=== PATIENT | male | born 1995 | race Caucasian/White ===

== ENCOUNTER 2020-01-06 03:43 | Inpatient (IN) ==
--- OUTSIDE RECORDS SUMMARY | 2020-01-06 03:46 | External Medical Summary | Continuity of Care Document ---
:1995 Author Name Arben Waddell, Provider Address Unavailable Unavailable , Care Team Providers Name Role Phone Anayeli GRIFFIN M.D., Dharmesh Liz Unavailable [email or web address] ELIAS ACOSTA M.D., A Unavailable Unavailable Unavailable Unavailable Unavailable Problems Pain (780.96) (R52) Cellulitis (682.9) (L03.90) Allergies and Adverse Reactions amoxicillin (Allergy) Medications Saw [place] Oral Capsule Refills: 0 Vitamin B Complex Oral Tablet; TAKE 1 TABLET DAILY. Refills: 0 Fish Oil 1000 MG Oral Capsule Refills: 0 Niacin TABS; TAKE 1 TABLET DAILY DIRECTED. Refills: 0 Vitamin C 100 MG Oral Tablet; TAKE 1 TABLET DAILY DIRECTE D. Refills: 0 Procedures Procedures not documented Immunizations Immunizations not documented Family History Unknown Family Member Family history unknown (V49.89) (Z78.9) Status: Active Comments: Family History Plan of Treatment Planned Observations Planned Goals not documented Results No Known Results Results not documented Encounters Appointment; Anna De Anda PA-C 08-May-2018 16:00 Encounter Diagnosis: Problem not documented Appointment; Nursing [facility], [place] [id number] 08-May-2018 15:45 Encounter Diagnosis: Problem not documented
[2020-01-06] MEDS ORDERED: SODIUM CHLORIDE 0.9% 1000ML 1,000 ML IV ONE ×2 (03:59→05:05)
--- NOTE | 2020-01-06 04:09 | Emergency Department Note ---
History of Present Illness General Chief Complaint: Syncope Stated Complaint: UNRESPONSIVE EPISODE Source: patient Mode of arrival: ambulatory Limitations: no limitations History of Present Illness Provider Complaint: + loss of consciousness Onset (ago): 1 hour(s) Prodromal symptoms: + none Witnessed: + no Context: + illicit drug use and + other (in sauna after exercising) Injuries sustained associated with event: + none Current symptoms: + back to baseline Treatments prior to arrival: + none HPI narrative: This 24-year-old male patient presents the emergency department today via ambulance for syncopal episode. The patient states at approximately 11 PM, he went to the gym with a friend. He states he then vomited, left to go get food, and went back to the gym to workout. He states he had maybe a 2-hour workout, and to the sauna, but his phone was so he was unable to set an alarm to remind him to leave the sauna. He states the next thing he knew, he awoke in the sauna, drenched in sweat, and walked out when he saw multiple police officers in the gym. EMS was contacted and the patient was brought to the ED for evaluation. He states he does not remember passing out, but knows that he just fell over. He reports feeling very thirsty, but otherwise denies any abnormal symptoms. He does admit to using recreational steroids and a weight loss supplement. He states 4 days ago, he had another syncopal episode while at home with his girlfriend. He states he got up to go to the bathroom, and passed out and was unable to return to bed. He states he was extremely thirsty at that time as well. Patient states his girlfriend who is a type I diabetic checked his blood sugar and noted it to be "almost nothing", prompting him to believe that he is now prediabetic due to the steroids. Patient denies any chest pain, dyspnea, abdominal pain, nausea, vomiting, numbness, tingling, weakness, headache, dizziness, or other associated symptoms. EMS report noted patient was found with a substance which PD field tested positive for methamphetamine. Home Medicaitons Home Medications Medication Instructions Recorded Confirmed Type No Known Home Medications 01/06/20 01/06/20 History Allergies Allergy/AdvReac Type Severity Reaction Status Date / Time amoxicillin Allergy Unknown . Verified 01/06/20 03:50 Past Med/Surg History Medical History No pertinent past medical history Social History Feels Safe at Home: Yes Smoking Status: Current some day smoker Tobacco Type: cigarettes ; Hx Alcohol Use: Yes Hx Substance Use: Yes substance use type: marijuana, methamphetamine and other Substance Use Type Other:: "chante", "thermogenics for weight loss", "testosterone and steroids" Last Used Substance: Hours (ago) Review of Systems A total of 10 systems reviewed and were otherwise negative Physical Exam Vital Signs: Vital Signs - 24 hr 01/06/20 03:48 01/06/20 05:20 01/06/20 06:00 Temperature 37.8 C H Temperature Source Oral Pulse Rate 116 H Pulse Rate [Right Finger] 128 H 128 H Pulse Rhythm Regular Pulse Rhythm [Righ t Finger] Regular Respiratory Rate 20 16 18 Respiratory Depth Normal Normal Normal Blood Pressure 149/100 H Blood Pressure [Ri ght Arm] 134/50 L 133/52 L Blood Pressure Riana n 116 Blood Pressure Riana n [Right Arm] 78 79 Blood Pressure Pos ition Lying Blood Pressure Pos ition [Right Arm] Lying Lying Pulse Oximetry 99 99 98 Oxygen Delivery Me thod Room Air Room Air Room Air Sepsis Recent Feve r Within 48 Hours No Sepsis New/Unexpla ined Change in Men marco Status No Sepsis Action Take n by Nursing No Action Required 01/06/20 07:00 Temperature Temperature Source Pulse Rate Pulse Rate [Right Finger] 128 H Pulse Rhythm Pulse Rhythm [Righ t Finger] Respiratory Rate 16 Respiratory Depth Blood Pressure Blood Pressure [Ri ght Arm] 131/62 Blood Pressure Riana n Blood Pressure Riana n [Right Arm] 85 Blood Pressure Pos ition Blood Pressure Pos ition [Right Arm] Pulse Oximetry Oxygen Delivery Me thod Sepsis Recent Feve r Within 48 Hours Sepsis New/Unexpla ined Change in Men marco Status Sepsis Action Take n by Nursing Physical Exam: VITALS: Vitals are noted on the nurse's note and reviewed by myself. Patient is tachycardic, hypertensive, and temp is 37.8. GENERAL: This is a 24-year-old white male, in no acute distress, nondiaphoretic, well-developed well-nourished. SKIN: The skin was without rashes, erythema, edema, or bruising. There is no tenting of the skin. Capillary refill less than 2 seconds. HEAD: Normocephalic atraumatic. EARS: External auditory canals clear, tympanic membranes pearly rivas without erythema or effusion bilaterally. EYES: Pupils dilated, but equal round and reactive to light and accommodation. Conjunctivae without injection, sclerae without icterus. Extraocular movements intact. NOSE: Patent, turbinates without inflammation or discharge. No sinus tenderness. MOUTH: Mucous membranes moist. Tonsils are not enlarged. Pharynx without erythema or exudate. Uvula midline. Airway patent. Tongue does not deviate. NECK: Supple without nuchal rigidity. No lymphadenopathy. Cervical spine is nontender. No JVD. HEART: Regular rate and rhythm without murmurs gallops or rubs. LUNGS: Clear to auscultation bilaterally without wheezes, rales or rhonchi. No retractions or accessory muscle use. ABDOMEN: Positive bowel sounds x 4. Normal tympanic percussion. Soft, nontender, without masses or organomegaly. Burleson sign negative. No guarding or rebound tenderness. MUSCULOSKELETAL: No muscle atrophy, erythema, or edema noted. Full range of motion without joint tenderness in all extremities. No tenderness to palpation. Normal gait. Strength 5/5 throughout. NEURO: Patient was alert and oriented to person place and time. Normal sensation to light and sharp touch. Deep tendon reflexes 2+ throughout. No focal neurological deficits. Course Course The patient was seen and evaluated as above. IV access obtained, labs drawn. Patient medicated with IV fluids. I discussed the case with my attending physician. Imaging performed and reviewed by myself and radiologist as above. Labs reviewed by myself. Patient's tachycardia did not improve. Added blood cultures, lactic acid, CK, repeat potassium. Patient given repeat 1 L IV fluid bolus. Labs reviewed. I discussed the findings with the patient at bedside. I did recommend admission due to multiple episodes of syncope over the past few days, positive drug screen, tachycardia, and fever. The patient ultimately agreed. I discussed case with the regulatory process manager. I [facility] the [facility] He did agree to see and evaluate the patient for admission. Administered Medications Discontinued Medications Sodium Chloride (Nss 1000ml) 1,000 mls @ 999 mls/hr IV .Q1H1M ONE Stop: 01/06/20 04:59 Last Infusion: 01/06/20 06:34 Dose: 0 mls/hr Documented by: [id number] Admin: 01/06/20 04:25 Dose: 999 mls/hr Documented by: [id number] Sodium Chloride (Nss 1000ml) 1,000 mls @ 999 mls/hr IV .Q1H1M ONE Stop: 01/06/20 06:05 Last Infusion: 01/06/20 06:34 Dose: 0 mls/hr Documented by: [id number] Admin: 01/06/20 05:33 Dose: 999 mls/hr Documented by: [id number] Lorazepam (Ativan) 1 mg in 2 mls @ 2 mls/min IV NOW STA Stop: 01/06/20 06:34 Last Admin: 01/06/20 07:03 Dose: 2 mls/min Documented by: [id number] Medical Decision Making Differential Diagnosis + syncope due to orthostatic hypotension, + vasovagal event, + complete atrioventricular block, + subarachnoid hemorrhage, + pulmonary embolism, + d ehydration, + orthostasis, + POTS, + infection, + hypoglycemia, + electrolyte ab normalities, + dysrhythmias, + ACS, + intracerebral event, + toxicologic, + neur ologic and + trauma Medical Records Attestation: I reviewed the patient's medical records. Home Medications Current Medication List: was personally reviewed by me Laboratory Data Attestation: I reviewed the patient's lab results. Leukocytosis of 18,000. No anemia or thrombocytopenia. Platelet count elevated 448,000. CK 4450. Coags normal. Renal, hepatic function without significant abnormalities. Initial potassium 5.4. Repeat potassium 4.7. Magnesium elevated at 2.7. Troponin 0 0.034. Lactate 0.9. UDS positive for amphetamines/methamphetamines, MDMA, marijuana. Result diagrams: 01/06/20 04:12 01/06/20 05:58 Lab Results 01/06/20 01/06/20 01/06/20 Range/Units 04:12 04:12 04:12 WBC (4.8-10.8) K/uL RBC (4.7-6.1) M/uL Hgb (14.0-18.0) g/dL Hct (42-52) % MCV (80-100) fL MCH (25-34) pg MCHC (32-36) g/dL RDW Std Deviation (36.4-46.3) fL RDW Coeff of Demar (11.5-14.5) % Plt Count (130-400) K/uL MPV (7.4-10.4) fL Immature Gran % (Auto) % Neut % (Auto) % Lymph % (Auto) % Wilkes % (Auto) % Eos % (Auto) % Baso % (Auto) % Immature Gran # (Auto) (0.00-0.02) K/uL Neut # (Auto) (1.4-6.5) K/uL Lymph # (Auto) (1.2-3.4) K/uL Wilkes # (Auto) (0.11-0.59) K/uL Eos # (Auto) (0-0.5) K/uL Baso # (Auto) (0-0.2) K/uL PT 10.4 (9.0-12.0) Seconds INR 1.0 (0.9-1.1) Sodium 137 (136-145) mmol/L Potassium 5.4 H (3.5-5.1) mmol/L Chloride 105 (98-107) mmol/L Carbon Dioxide 22 (21-32) mmol/L Anion Gap 10.0 (3-11) BUN 24 H (7-18) mg/dl Creatinine 1.28 (0.6-1.4) mg/dl Est Cr Clr Drug Dosing 91.9 ml/min Est GFR ( Amer) 90.2 Est GFR (Non-Af Amer) 77.8 BUN/Creatinine Ratio 18.7 (10-20) Glucose 78 (70-99) mg/dl POC Glucose (70-99) mg/dl Lactate (0.4-2.0) mmol/L Calcium 9.2 (8.5-10.1) mg/dl Magnesium 2.7 H (1.8-2.4) mg/dl Total Bilirubin 1.0 (0.2-1) mg/dl AST 102 H (15-37) U/L ALT 65 (12-78) U/L Alkaline Phosphatase 63 (45-117) U/L Total Creatine Kinase (39-308) U/L Troponin I 0.034 (0-0.045) ng/ml Total Protein 8.5 H (6.4-8.2) gm/dl Albumin 4.0 (3.4-5.0) gm/dl Globulin 4.5 H (2.5-4.0) gm/dl Albumin/Globulin Ratio 0.9 (0.9-2) Urine Color Urine Appearance (Clear) Urine pH (4.5-7.5) Ur Specific [place] (1.000-1.030) Urine Protein (Negative) Urine Glucose (UA) (Negative) Urine Ketones (Negative) Urine Blood (Negative) Urine Nitrite (Negative) Urine Bilirubin (Negative) Urine Urobilinogen (Negative) Ur Leukocyte Esterase (Negative) Urine WBC (Auto) (0-5) /hpf Urine RBC (Auto) (0-4) /hpf U Hyaline Cast (Auto) (0-5) /lpf U Epithel Cells (Auto) (0-5) /lpf Urine Bacteria (Auto) (Negative) Urine Mucus (None Prsent) Salicylates < 1.7 L (2.8-20) mg/dl Urine Opiates Screen (Neg) Ur Methadone, Qual (Neg) Acetaminophen < 2 L (10-30) ug/ml Urine Barbiturates (Neg) Ur Phencyclidine (PCP) (Neg) U Amphetamin/Meth Scrn (Neg) MDMA (Ecstasy) Screen (Neg) U Benzodiazepines Scrn (Neg) Ur Cocaine Metabolite (Neg) U Marijuana (THC) Screen (Neg) Ethyl Alcohol mg/dL (0-3) mg/dl 01/06/20 01/06/20 01/06/20 Range/Units 04:12 04:12 04:12 WBC 18.62 H (4.8-10.8) K/uL RBC 4.88 (4.7-6.1) M/uL Hgb 15.7 (14.0-18.0) g/dL Hct 46.9 (42-52) % MCV 96.1 (80-100) fL MCH 32.2 (25-34) pg MCHC 33.5 (32-36) g/dL RDW Std Deviation 59.6 H (36.4-46.3) fL RDW Coeff of Demar 17.0 H (11.5-14.5) % Plt Count 448 H (130-400) K/uL MPV 10.0 (7.4-10.4) fL Immature Gran % (Auto) 0.5 % Neut % (Auto) 86.9 % Lymph % (Auto) 3.9 % Wilkes % (Auto) 8.5 % Eos % (Auto) 0.1 % Baso % (Auto) 0.1 % Immature Gran # (Auto) 0.09 H (0.00-0.02) K/uL Neut # (Auto) 16.19 H (1.4-6.5) K/uL Lymph # (Auto) 0.72 L (1.2-3.4) K/uL Wilkes # (Auto) 1.59 H (0.11-0.59) K/uL Eos # (Auto) 0.01 (0-0.5) K/uL Baso # (Auto) 0.02 (0-0.2) K/uL PT (9.0-12.0) Seconds INR (0.9-1.1) Sodium (136-145) mmol/L Potassium (3.5-5.1) mmol/L Chloride (98-107) mmol/L Carbon Dioxide (21-32) mmol/L Anion Gap (3-11) BUN (7-18) mg/dl Creatinine (0.6-1.4) mg/dl Est Cr Clr Drug Dosing ml/min Est GFR ( Amer) Est GFR (Non-Af Amer) BUN/Creatinine Ratio (10-20) Glucose (70-99) mg/dl POC Glucose (70-99) mg/dl Lactate (0.4-2.0) mmol/L Calcium (8.5-10.1) mg/dl Magnesium (1.8-2.4) mg/dl Total Bilirubin (0.2-1) mg/dl AST (15-37) U/L ALT (12-78) U/L Alkaline Phosphatase (45-117) U/L Total Creatine Kinase 4450 H (39-308) U/L Troponin I (0-0.045) ng/ml Total Protein (6.4-8.2) gm/dl Albumin (3.4-5.0) gm/dl Globulin (2.5-4.0) gm/dl Albumin/Globulin Ratio (0.9-2) Urine Color Urine Appearance (Clear) Urine pH (4.5-7.5) Ur Specific [place] (1.000-1.030) Urine Protein (Negative) Urine Glucose (UA) (Negative) Urine Ketones (Negative) Urine Blood (Negative) Urine Nitrite (Negative) Urine Bilirubin (Negative) Urine Urobilinogen (Negative) Ur Leukocyte Esterase (Negative) Urine WBC (Auto) (0-5) /hpf Urine RBC (Auto) (0-4) /hpf U Hyaline Cast (Auto) (0-5) /lpf U Epithel Cells (Auto) (0-5) /lpf Urine Bacteria (Auto) (Negative) Urine Mucus (None Prsent) Salicylates (2.8-20) mg/dl Urine Opiates Screen (Neg) Ur Methadone, Qual (Neg) Acetaminophen (10-30) ug/ml Urine Barbiturates (Neg) Ur Phencyclidine (PCP) (Neg) U Amphetamin/Meth Scrn (Neg) MDMA (Ecstasy) Screen (Neg) U Benzodiazepines Scrn (Neg) Ur Cocaine Metabolite (Neg) U Marijuana (THC) Screen (Neg) Ethyl Alcohol mg/dL < 3.0 (0-3) mg/dl 01/06/20 01/06/20 01/06/20 Range/Units 04:20 05:32 05:32 WBC (4.8-10.8) K/uL RBC (4.7-6.1) M/uL Hgb (14.0-18.0) g/dL Hct (42-52) % MCV (80-100) fL MCH (25-34) pg MCHC (32-36) g/dL RDW Std Deviation (36.4-46.3) fL RDW Coeff of Demar (11.5-14.5) % Plt Count (130-400) K/uL MPV (7.4-10.4) fL Immature Gran % (Auto) % Neut % (Auto) % Lymph % (Auto) % Wilkes % (Auto) % Eos % (Auto) % Baso % (Auto) % Immature Gran # (Auto) (0.00-0.02) K/uL Neut # (Auto) (1.4-6.5) K/uL Lymph # (Auto) (1.2-3.4) K/uL Wilkes # (Auto) (0.11-0.59) K/uL Eos # (Auto) (0-0.5) K/uL Baso # (Auto) (0-0.2) K/uL PT (9.0-12.0) Seconds INR (0.9-1.1) Sodium (136-145) mmol/L Potassium (3.5-5.1) mmol/L Chloride (98-107) mmol/L Carbon Dioxide (21-32) mmol/L Anion Gap (3-11) BUN (7-18) mg/dl Creatinine (0.6-1.4) mg/dl Est Cr Clr Drug Dosing ml/min Est GFR ( Amer) Est GFR (Non-Af Amer) BUN/Creatinine Ratio (10-20) Glucose (70-99) mg/dl POC Glucose 87 (70-99) mg/dl Lactate (0.4-2.0) mmol/L Calcium (8.5-10.1) mg/dl Magnesium (1.8-2.4) mg/dl Total Bilirubin (0.2-1) mg/dl AST (15-37) U/L ALT (12-78) U/L Alkaline Phosphatase (45-117) U/L Total Creatine Kinase (39-308) U/L Troponin I (0-0.045) ng/ml Total Protein (6.4-8.2) gm/dl Albumin (3.4-5.0) gm/dl Globulin (2.5-4.0) gm/dl Albumin/Globulin Ratio (0.9-2) Urine Color Dark Yellow Urine Appearance Clear (Clear) Urine pH 5.0 (4.5-7.5) Ur Specific [place] 1.028 (1.000-1.030) Urine Protein 1+ H (Negative) Urine Glucose (UA) Negative (Negative) Urine Ketones 3+ H (Negative) Urine Blood 2+ H (Negative) Urine Nitrite Negative (Negative) Urine Bilirubin Negative (Negative) Urine Urobilinogen Negative (Negative) Ur Leukocyte Esterase Negative (Negative) Urine WBC (Auto) 5-10 H (0-5) /hpf Urine RBC (Auto) 0-4 (0-4) /hpf U Hyaline Cast (Auto) >30 H (0-5) /lpf U Epithel Cells (Auto) 10-20 H (0-5) /lpf Urine Bacteria (Auto) Negative (Negative) Urine Mucus Present A (None Prsent) Salicylates (2.8-20) mg/dl Urine Opiates Screen Neg (Neg) Ur Methadone, Qual Neg (Neg) Acetaminophen (10-30) ug/ml Urine Barbiturates Neg (Neg) Ur Phencyclidine (PCP) Neg (Neg) U Amphetamin/Meth Scrn Pos H (Neg) MDMA (Ecstasy) Screen Pos H (Neg) U Benzodiazepines Scrn Neg (Neg) Ur Cocaine Metabolite Neg (Neg) U Marijuana (THC) Screen Pos H (Neg) Ethyl Alcohol mg/dL (0-3) mg/dl 01/06/20 01/06/20 Range/Units 05:58 05:58 WBC (4.8-10.8) K/uL RBC (4.7-6.1) M/uL Hgb (14.0-18.0) g/dL Hct (42-52) % MCV (80-100) fL MCH (25-34) pg MCHC (32-36) g/dL RDW Std Deviation (36.4-46.3) fL RDW Coeff of Demar (11.5-14.5) % Plt Count (130-400) K/uL MPV (7.4-10.4) fL Immature Gran % (Auto) % Neut % (Auto) % Lymph % (Auto) % Wilkes % (Auto) % Eos % (Auto) % Baso % (Auto) % Immature Gran # (Auto) (0.00-0.02) K/uL Neut # (Auto) (1.4-6.5) K/uL Lymph # (Auto) (1.2-3.4) K/uL Wilkes # (Auto) (0.11-0.59) K/uL Eos # (Auto) (0-0.5) K/uL Baso # (Auto) (0-0.2) K/uL PT (9.0-12.0) Seconds INR (0.9-1.1) Sodium (136-145) mmol/L Potassium 4.7 (3.5-5.1) mmol/L Chloride (98-107) mmol/L Carbon Dioxide (21-32) mmol/L Anion Gap (3-11) BUN (7-18) mg/dl Creatinine (0.6-1.4) mg/dl Est Cr Clr Drug Dosing ml/min Est GFR ( Amer) Est GFR (Non-Af Amer) BUN/Creatinine Ratio (10-20) Glucose (70-99) mg/dl POC Glucose (70-99) mg/dl Lactate 0.9 (0.4-2.0) mmol/L Calcium (8.5-10.1) mg/dl Magnesium (1.8-2.4) mg/dl Total Bilirubin (0.2-1) mg/dl AST (15-37) U/L ALT (12-78) U/L Alkaline Phosphatase (45-117) U/L Total Creatine Kinase (39-308) U/L Troponin I (0-0.045) ng/ml Total Protein (6.4-8.2) gm/dl Albumin (3.4-5.0) gm/dl Globulin (2.5-4.0) gm/dl Albumin/Globulin Ratio (0.9-2) Urine Color Urine Appearance (Clear) Urine pH (4.5-7.5) Ur Specific [place] (1.000-1.030) Urine Protein (Negative) Urine Glucose (UA) (Negative) Urine Ketones (Negative) Urine Blood (Negative) Urine Nitrite (Negative) Urine Bilirubin (Negative) Urine Urobilinogen (Negative) Ur Leukocyte Esterase (Negative) Urine WBC (Auto) (0-5) /hpf Urine RBC (Auto) (0-4) /hpf U Hyaline Cast (Auto) (0-5) /lpf U Epithel Cells (Auto) (0-5) /lpf Urine Bacteria (Auto) (Negative) Urine Mucus (None Prsent) Salicylates (2.8-20) mg/dl Urine Opiates Screen (Neg) Ur Methadone, Qual (Neg) Acetaminophen (10-30) ug/ml Urine Barbiturates (Neg) Ur Phencyclidine (PCP) (Neg) U Amphetamin/Meth Scrn (Neg) MDMA (Ecstasy) Screen (Neg) U Benzodiazepines Scrn (Neg) Ur Cocaine Metabolite (Neg) U Marijuana (THC) Screen (Neg) Ethyl Alcohol mg/dL (0-3) mg/dl Imaging Data Attestation: I personally reviewed and interpreted this imaging study as follows: My Impression: Chest x-ray. Findings: A chest x-ray was performed and revealed no pneumothorax, effusion, infiltrate, pulmonary edema, free air under the diaphragm, or wide mediastinum. ECG Data Attestation: I personally reviewed and interpreted this ECG as follows: Indication: syncope and tachycardia Rate (beats per minute): 110 Rhythm: sinus tachycardia Findings: no ST depression, no T-wave inversion, no ST elevation, no acute ischemic change and no ectopy Comparison ECG Date: no prior available Additional Comments: Repeat EKG performed at 6:15 AM shows a sinus tachycardia with a ventricular rate of 110 bpm. No acute ischemic changes. No ST elevation or depression. No T wave inversion. Blood Pressure Blood Pressure Findings: Elevated blood pressure Blood Pressure Disposition: further management by hospitalist CURT Guajardo This 24-year-old male patient presents the emergency department today for evaluation of syncopal episode. The patient does admit to using steroids recreationally as well as a thermogenic for weight loss. He does have a known history of drug use and does admit to using Chante. He was found with a substance that tested positive for methamphetamine by PD. This is the patient's second syncopal episode in the past few days. He is hypertensive, tachycardic, and febrile upon arrival to the ED. Patient does have a leukocytosis of 18,000 and appears to be in rhabdomyolysis with a CK of 4450. Troponin mildly elevated at 0.034. He was initially hyperkalemic at 5.4, this did improve with IV fluids. EKG shows sinus tachycardia, but no dysrhythmia. Chest x-ray without evidence of acute cardiopulmonary abnormality. Cultures are pending. Lactic acid normal. Unclear how long the patient was unconscious in the sauna, and this episode was not witnessed. Patient denies any symptoms at this time. Given the rhabdo, mildly elevated troponin, tachycardia which has not improved despite fluid bolus, and symptoms, I do recommend admission for further evaluation management of him symptoms. I did discuss with the patient the potential that this could be an endocarditis especially given his history of drug use. The patient ultimately was agreeable to admission. The patient will be admitted to the [facility] hospitalist service for further evaluation and management of his symptoms. Please see hospitalist dictation regarding further care. The chart was completed utilizing Dragon Speech voice recognition software. Grammatical errors, random word insertions, pronoun errors, and incomplete sentences are an occasional consequence of this system due to software limitati ons, ambient noise, and hardware issues. Any formal questions or concerns about the content, text, or information contained within the body of this dictation should be directly addressed to the provider for clarification. Impression & Plan Rhabdomyolysis, Tachycardia, Illicit drug use, History of anabolic steroid use, Syncope Discharge Plan Visit Data Chief Complaint: Syncope Stated Complaint: UNRESPONSIVE EPISODE ED Provider: Garfield Smith ED Midlevel Provider: Domenica Whittington Discharge Problem: Rhabdomyolysis, Tachycardia, Illicit drug use, History of anabolic steroid use, Syncope Patient Disposition: Admitted As Inpatient Condition: Good Forms Stand Alone Forms: [facility], Important Visit Information Prescriptions Prescriptions: No Action No Known Home Medications RF: 0 Referrals Referrals: PCP,NO [Primary Care Provider] - Discharge Problem: Rhabdomyolysis Qualifiers: Rhabdomyolysis type: non-traumatic Qualified Code(s): M62.82 - Rhabdomyolysis Syncope Qualifiers: Syncope type: unspecified Qualified Code(s): R55 - Syncope and collapse
[2020-01-06 04:29] LABS: Basophils # (auto) 0.02 K/uL (0-0.2); Basophils % (auto) 0.1 %; Eosinophils # (auto) 0.01 K/uL (0-0.5); Eosinophils % (auto) 0.1 %; Hematocrit (blood only) 46.9 % (42-52); Hemoglobin 15.7 g/dL (14.0-18.0); Immature Granulocytes # (auto) 0.09 K/uL (0.00-0.02); Immature Granulocytes % (auto) 0.5 %; Lymphocytes # (auto) 0.72 K/uL (1.2-3.4); Lymphocytes % (auto) 3.9 %; Mean Corpuscular Hemoglobin 32.2 pg (25-34); Mean Corpuscular Hgb Conc 33.5 g/dL (32-36); Mean Corpuscular Volume 96.1 fL (80-100); Monocytes # (auto) 1.59 K/uL (0.11-0.59); Monocytes % (auto) 8.5 %; Neutrophils # (auto) 16.19 K/uL (1.4-6.5); Neutrophils % (auto) 86.9 %; Platelet Count 448 K/uL (130-400); RDW Standard Deviation 59.6 fL (36.4-46.3); Red Blood Count 4.88 M/uL (4.7-6.1); White Blood Count 18.62 K/uL (4.8-10.8)
[2020-01-06 04:40] LABS: Prothrombin Time 10.4 Seconds (9.0-12.0)
[2020-01-06 04:48] LABS: BUN Creatinine Ratio 18.7 (10-20); Calcium 9.2 mg/dl (8.5-10.1); Creatinine Clr Calc Pharmacy 91.9 ml/min; Est GFR (African American) 90.2; Est GFR (Non-African American) 77.8; Magnesium 2.7 mg/dl (1.8-2.4); Potassium 5.4 mmol/L (3.5-5.1)
[2020-01-06 04:53] LABS: Albumin Globulin Ratio 0.9 (0.9-2); Globulin 4.5 gm/dl (2.5-4.0); Total Protein 8.5 gm/dl (6.4-8.2); Troponin I 0.034 ng/ml (0-0.045)
[2020-01-06 04:55] LABS: Acetaminophen < 2 ug/ml (10-30)
[2020-01-06 04:56] LABS: Salicylate < 1.7 mg/dl (2.8-20)
[2020-01-06 05:41] LABS: Appearance Urine Clear (Clear); Bacteria Urine Automated Negative (Negative); Bilirubin Urine Negative (Negative); Blood Urine 2+ (Negative); Color Urine Dark Yellow; Glucose Urine UA Negative (Negative); Leukocyte Esterase Urine Negative (Negative); Nitrite Urine Negative (Negative); Protein Urine 1+ (Negative); RBC Urine Automated 0-4 /hpf (0-4); Specific Gravity Urine 1.028 (1.000-1.030); Urobilinogen Urine Negative (Negative)
[2020-01-06 06:11] LABS: Ketones Urine 3+ (Negative)
[2020-01-06 06:16] LABS: Amphetamines+Metham, Urine Pos (Neg); Barbiturates, Urine Neg (Neg); Benzodiazepine, Urine Neg (Neg); Cocaine, Urine Neg (Neg); MDMA (Ecstacy), Urine Pos (Neg); Methadone, Urine Neg (Neg); Opiate, Urine Neg (Neg); Phencyclidine, Urine Neg (Neg)
[2020-01-06 06:32] LABS: Cast Urine Automated >30 /lpf (0-5); Mucus Urine Present (None Prsent)
[2020-01-06] MEDS ORDERED: LORazepam 1 MG/2 ML VIAL IV STA (06:33)
--- NOTE | 2020-01-06 07:18 | XRay Report ---
XR chest 1V portable HISTORY: syncope COMPARISON: None. FINDINGS: The lungs are clear. Cardiac silhouette is normal in size. No pleural effusions. No pneumot horax. IMPRESSION: No acute process. ACT 112: Negative or not required by law. Electronically signed by: Erasto Castaneda M.D. 01/06/2020 7:17 AM
[2020-01-06 08:08] LABS: Influenza A virus by PCR Neg for Influ A (Neg); Influenza B virus by PCR Neg for Influ B (Neg)
[2020-01-06] MEDS ORDERED: ONDANSETRON INJ 2 MG/ML 2 ML VIAL IV PRN (09:29)
[2020-01-06] MEDS ORDERED: ACETAMINOPHEN 325 MG TAB PO PRN (09:29)
[2020-01-06] MEDS ORDERED: LORazepam 1 MG/2 ML VIAL IV PRN (09:29)
[2020-01-06] MEDS ORDERED: NORMOSOL-R 1,000 ML IV SCH (09:45)
[2020-01-06 11:34] LABS: Hematocrit (blood only) 41.7 % (42-52); Mean Corpuscular Hemoglobin 32.3 pg (25-34); Mean Corpuscular Volume 96.1 fL (80-100); Mean Platelet Volume 9.9 fL (7.4-10.4); Platelet Count 436 K/uL (130-400); RDW Coefficient of Variation 17.2 % (11.5-14.5); RDW Standard Deviation 60.9 fL (36.4-46.3); Red Blood Count 4.34 M/uL (4.7-6.1); White Blood Count 18.43 K/uL (4.8-10.8)
[2020-01-06 11:47] LABS: Mean Corpuscular Hgb Conc 33.6 g/dL (32-36)
[2020-01-06 12:00] LABS: Albumin Level 3.4 gm/dl (3.4-5.0); Calcium 8.4 mg/dl (8.5-10.1); Creatinine Clr Calc Pharmacy 95.6 ml/min; Est GFR (African American) 94.6; Est GFR (Non-African American) 81.7; Potassium 4.2 mmol/L (3.5-5.1)
[2020-01-06 12:14] LABS: Albumin Globulin Ratio 0.9 (0.9-2); Bilirubin,Total 1.1 mg/dl (0.2-1); Globulin 3.9 gm/dl (2.5-4.0); Total Protein 7.3 gm/dl (6.4-8.2)
--- NOTE | 2020-01-06 13:16 | History & Physical Report ---
Date of Service January 06, 2020 Assessment & Plan (1) Rhabdomyolysis: Certainly from combination of working out and being in the sauna. Stimulant/testosterone usage may have exacerbated it. - Initially, the patient was willing to stay until at least the evening to have repeat labs done and get IV fluids. At 11am, he informed the nurse he had to leave. He was willing to get repeat labs, but not willing to stay until they resulted. As such, I did my best to certified personal finance counselor him on conservative next steps. I did tell him that I wanted him to stay in the hospital, but he could not do this. This was technically an "against medical advice" discharge, though I did a normal discharge so that I could put in writing what I counseled him on. I did tell him to stop using supplements forever (but realistically that he should please at least stop them for a week). I did certified personal finance counselor him on what to do if he has any further signs of worsening rhabdo. - CK is trending up slightly, but only a bit. I attempted to call him, but his phone is disconnected. I encouraged him to drink plenty of fluids and keep his urine light yellow. (2) Syncope: Do not believe this to be a true syncope as he was resting in the sauna and just fell asleep for several hours. He reported another instance where he got lightheaded, but again didn't pass out at home. This was in the context of using lots of supplements & marijuana and sounded like a presyncopal/vasovagal episode that quickly resolved with drinking some Gatorade. - No suspicion of cardiac etiology. EKG looks normal (no Brugada or pre- excitation). Normal cardiac exam. Did not have time to do an echo, though my suspicion is low enough that I did not intend to order one at this juncture. Counseled avoiding all supplements and drinking plenty of fluids. Counseled good bed hygiene including no screens before bed and regular bed-time / wake up times. History of Present Illness Primary Care Provider: NO PCP 24yo M w/ no PMH who presented after possible syncopal event while at the gym. He uses large variety of supplements including testosterone supplement, some sort of amphetamine/stimulant, fish oil, vitamin E, and others. He also smokes marijuana. He went to the gym at approx. 11pm yesterday and worked out for ~1 hour. He was very sore, and his friend convinced him to get into the sauna. His friend left, and he reports he fell asleep/maybe passed out in the sauna. He woke up several hours later and was altered enough that he was brought to the Emergency Department by EMS. In the ED, he was somewhat agitated and received a dose of Ativan. He was noted to have rhabdomyolysis and was given 2L of normal saline. On my discussion, he actually feels overall well. He still has some generalized soreness in the arms & legs, but otherwise has no specific complaints. Allergies Allergy/AdvReac Type Severity Reaction Status Date / Time amoxicillin Allergy Unknown . Verified 01/06/20 03:50 Home Medications Home Medications Medication Instructions Recorded Confirmed Type acetaminophen [Mapap 650 mg PO Q4H PRN #1 tab 01/06/20 Rx (acetaminophen)] Past Med/Surg History Medical History No pertinent past medical history Family History (Updated 01/06/20 @ 13:07 by Juan A Sen MD) Other No family history of abnormal heart rhythm Social History Preferred Language: Maori Communication Ability: Effective Commercial Litigation Associate Required: No Beliefs That Will Affect Care: None Current Living Situation: Alone Other Information That Helps Us Care for You: No Feels Safe at Home: Yes Safety Concerns: Feels Safe At This Time Smoking Status: Current some day smoker Tobacco Type: e-cigarettes ; Cigarettes Per Day: 2 ; Do You Dip or Chew Tobacco: No ; Second Hand Exposure: No ; Tobacco Cessation Education Requested by Patient: No Hx Alcohol Use: No Hx Substance Use: Yes substance use type: marijuana and other Substance Use Type Other:: steroids, hx of benzodiazepine abuse Last Used Substance: Unknown Review of Systems Review of Systems: All systems reviewed & are unremarkable except as noted in HPI & below Physical Exam Constitutional: WD/WN, vitals as above cooperative Eyes: EOM intact bilaterally; no conjunctival abnormality ENMT: external ear and nose normal, oropharynx normal Neck: trachea midline, no thyromegaly normal visual inspection Respiratory: normal respiratory effort, lungs clear to auscultation no respiratory distress Cardiovascular: Rate/Rhythm: regular rhythm and + tachycardic Vessels: no JVD Extremities: no edema Gastrointestinal (Abdomen): Inspection/Auscultation: abdomen normal to inspection; abdomen not distended Musculoskeletal: no cyanosis or clubbing, extremities motor strength 5/5 Skin: no rashes, warm and dry Neurologic: moves all extremities and awake Psychiatric: Orientation: alert, oriented x 3, oriented to person and cooperative Affect: + anxious affect Results & Data Vital Signs (Past 12 Hours) Vital Signs Temp Pulse Pulse Resp BP BP Pulse Ox 01/06/20 11:19 36.4 C L 116 H 18 128/62 98 01/06/20 09:26 36.4 C L 116 H 18 128/62 98 01/06/20 08:21 131 H 16 135/60 01/06/20 07:00 128 H 16 131/62 01/06/20 06:00 128 H 18 133/52 L 98 01/06/20 05:20 128 H 16 134/50 L 99 01/06/20 03:48 37.8 C H 116 H 20 149/100 H 99 Code Status & VTE Plan VTE Prophylaxis Plan VTE Prophylaxis will be ordered: Yes PG Care Time/CCT Total # of Minutes Spent Total Time Spent with Patient: Total time spent is greater than 50% in coordination of care (as documented) at patient's floor/unit and/or counseling patient: Coding Level of Care Code 24877 Initial Inpt Care Lvl 3 Diagnoses Rhabdomyolysis M62.82 Rhabdomyolysis type: non-traumatic Syncope R55 Syncope type: unspecified (1) Rhabdomyolysis Rhabdomyolysis type: non-traumatic Qualified Code(s): M62.82 - Rhabdomyolysis (2) Syncope Syncope type: unspecified Qualified Code(s): R55 - Syncope and collapse
--- NOTE | 2020-01-06 13:17 | Discharge Summary ---
Date of Service January 06, 2020 Admission HPI Per Admitting Provider 24yo M w/ no PMH who presented after possible syncopal event while at the gym. He uses large variety of supplements including testosterone supplement, some sort of amphetamine/stimulant, fish oil, vitamin E, and others. He also smokes marijuana. He went to the gym at approx. 11pm yesterday and worked out for ~1 hour. He was very sore, and his friend convinced him to get into the sauna. His friend left, and he reports he fell asleep/maybe passed out in the sauna. He woke up several hours later and was altered enough that he was brought to the Emergency Department by EMS. In the ED, he was somewhat agitated and received a dose of Ativan. He was noted to have rhabdomyolysis and was given 2L of normal saline. On my discussion, he actually feels overall well. He still has some generalized soreness in the arms & legs, but otherwise has no specific complaints. Principal Diagnosis Rhabdomyolysis Discharge Exam Constitutional WD/WN, vitals as above cooperative Eyes EOM intact bilaterally; no conjunctival abnormality ENMT external ear and nose normal, oropharynx normal Neck trachea midline, no thyromegaly normal visual inspection Respiratory normal respiratory effort, lungs clear to auscultation no respiratory distress Cardiovascular Rate/Rhythm: regular rhythm and + tachycardic Vessels: no JVD Extremities: no edema Gastrointestinal (Abdomen) Inspection/Auscultation: abdomen normal to inspection; abdomen not distended Musculoskeletal no cyanosis or clubbing, extremities motor strength 5/5 Skin no rashes, warm and dry Neurologic moves all extremities and awake Psychiatric Orientation: alert, oriented x 3, oriented to person and cooperative Affect: + anxious affect Discharge Data Allergies Allergy/AdvReac Type Severity Reaction Status Date / Time amoxicillin Allergy Unknown . Verified 01/06/20 03:50 Consultations 01/06/20 07:18 ED Decision to Admit Stat Hospital Course (1) Rhabdomyolysis: Certainly from combination of working out and being in the sauna. Stimulant/testosterone usage may have exacerbated it. - Initially, the patient was willing to stay until at least the evening to have repeat labs done and get IV fluids. At 11am, he informed the nurse he had to leave. He was willing to get repeat labs, but not willing to stay until they resulted. As such, I did my best to christian counselor him on conservative next steps. I did tell him that I wanted him to stay in the hospital, but he could not do this. This was technically an "against medical advice" discharge, though I did a normal discharge so that I could put in writing what I counseled him on. I did tell him to stop using supplements forever (but realistically that he should please at least stop them for a week). I did christian counselor him on what to do if he has any further signs of worsening rhabdo. - CK is trending up slightly, but only a bit. I attempted to call him, but his phone is disconnected. I encouraged him to drink plenty of fluids and keep his urine light yellow. (2) Syncope: Do not believe this to be a true syncope as he was resting in the sauna and just fell asleep for several hours. He reported another instance where he got lightheaded, but again didn't pass out at home. This was in the context of using lots of supplements & marijuana and sounded like a presyncopal/vasovagal episode that quickly resolved with drinking some Gatorade. - No suspicion of cardiac etiology. EKG looks normal (no Brugada or pre- excitation). Normal cardiac exam. Did not have time to do an echo, though my suspicion is low enough that I did not intend to order one at this juncture. Counseled avoiding all supplements and drinking plenty of fluids. Counseled good bed hygiene including no screens before bed and regular bed-time / wake up times. Total Time Total Time Spent Total Time Spent (In Minutes): 35 Discharge Plan Discharge Items Patient Disposition: Home - Self-Care Reason For Visit: RHABDOMYOLYSIS Discharge Diagnosis: Passing out; muscle damage Condition on Discharge: Good Activity: Resume your previous activity Exercise/Sports: None Exercise Comment: No strenuous exercise for 1 week, then gradually increase. Non-emergency contact: Primary Care Provider Call non-emergency contact if: your symptoms worsen, your pain is worsening and your temperature is above 101 Follow-up/Referrals: PCP,NO [Primary Care Provider] - Diet: Regular Addtl Attending Provider Instructions: Drink lots of fluids at home. As we discussed, shoot for about 1 gallon of fluid intake per day with most of it being water and/or Gatorade. (But only half should be Gatorade.) If your urine gets dark yellow or brown, you need to come back to the hospital to be sure your kidneys are healthy and you are not having further muscle breakdown. If you were to stop peeing all together, this is a medical emergency and you have to seek medical help as you could have fatal kidney injury. Stop taking all supplements! I think these are the cause of your medical issues and muscle breakdown. Do not take anything other than some acetaminophen (Tylenol) for the next week. If you must take supplements (and I recommend not ever taking the supplements), start them slowly and at low doses. Please go see your PCP as soon as you can to have labs done and to discuss your supplement usage. Pending Studies at Discharge: Yes (Labs) Stand-Alone Forms: My [facility], Smoking Cessation Medications and DC Order Prescriptions: New acetaminophen [Mapap (acetaminophen)] 325 mg Tablet 650 mg PO Q4H PRN (Reason: pain) Qty: 1 RF: 0 Discharge Orders: Discharge Order (Routine); Ordered 01/06/20 Ordered By: Juan A Sen Admission Data Admit Date/Time: 01/06/20 07:35 Attending Provider: Juan A Sen Admit Provider: Juan A Sen Primary Care Provider: PCP,NO Other Providers: Juan A Sen Other Interventions: Discharge Summary Assessment (RN) Last Done: 01/06/20 11:19 DC Date/Time DO NOT enter until pt leaves facility: 01/06/20 11:28 Coding Level of Care Code Admit/DC Same Day >8hr Level 3 Diagnoses Rhabdomyolysis M62.82 Rhabdomyolysis type: non-traumatic Syncope R55 Syncope type: unspecified
--- NOTE | 2020-01-06 14:39 | Electrocardiogram Report ---
Test Reason : Blood Pressure : / mmHG Vent. Rate : 110 BPM Atrial Rate : 110 BPM P-R Int : 116 ms QRS Dur : 082 ms QT Int : 308 ms P-R-T Axes : 081 086 025 degrees QTc Int : 416 ms Poor data quality, interpretation may be adversely affected Sinus tachycardia Otherwise normal ECG When compared with ECG of 06-JAN-2020 03:57, (unconfirmed) No significant change was found Confirmed by Cali Triana ([id number]) on 01/06/2020 2:39:20 PM Referred By: REFERRED SELF Confirmed By:Osvaldo Triana
--- NOTE | 2020-01-06 14:39 | Electrocardiogram Report ---
Test Reason : Blood Pressure : / mmHG Vent. Rate : 110 BPM Atrial Rate : 110 BPM P-R Int : 120 ms QRS Dur : 076 ms QT Int : 310 ms P-R-T Axes : 079 096 030 degrees QTc Int : 419 ms Sinus tachycardia Possible Left atrial enlargement Rightward axis Borderline ECG No previous ECGs available Confirmed by Cali Triana ([id number]) on 01/06/2020 2:39:24 PM Referred By: REFERRED SELF Confirmed By:Osvaldo Triana
== END 2020-01-06 11:28 | disposition home or self-care (01) | DRG 558 ==
LOC: ED 03:43 → 2N 07:35